=== PATIENT | male | born 1990 | race Caucasian/White ===

== ENCOUNTER 2016-07-30 10:14 | Emergency (ER) | payer SELFPAY ==
[~2016-07-30] VITALS: Ht 170.2 cm; Wt 107.0 kg
[2016-07-30 10:17] VITALS: BP 129/66
[2016-07-30] MEDS ORDERED: MORPHINE 2 MG/ML 1ML SYRINGE IV ONE (10:30)
[2016-07-30] MEDS ORDERED: ONDANSETRON 4 MG ORAL DISINTEGRATING TAB (S0181) SL ONE (10:45)
[2016-07-30 11:21] LABS: BASO # 0.1 K/mm3 (0.0-0.2); BASO % 0.9 % (0.0-1.0); EOS # 0.3 K/mm3 (0.0-0.50); LARGE UNSTAINED CELL # 0.2 K/mm3 (0.0-0.4); LARGE UNSTAINED CELL % 1.6 % (0.0-4.0); LYMPH % 19.1 % (24.0-44.0); MEAN CORPUSCULAR HEMOGLOBIN 30.9 pg (27.0-33.0); MEAN CORPUSCULAR HGB CONC 34.3 g/dl (32.0-36.5); MEAN CORPUSCULAR VOLUME 90.1 fl (80.0-96.0); MONO # 0.6 K/mm3 (0.0-0.8); NEUTROPHILS # 6.9 K/mm3 (1.8-7.7); NEUTROPHILS % 69.4 % (36.0-66.0); PLATELET COUNT, AUTOMATED 247 k/mm3 (150-450); RED CELL DISTRIBUTION WIDTH 12.9 % (11.5-14.5); WHITE BLOOD COUNT 9.9 K/mm3 (4.0-10.0)
[2016-07-30] MEDS ORDERED: NS 1,000 ML IV ONE ×2 (11:30→13:30)
[2016-07-30] MEDS ORDERED: MORPHINE 4 MG/ML 1ML SYRINGE IV ONE (11:30)
[2016-07-30 11:31] LABS: ANION GAP 4 MEQ/L (8-16); BLOOD UREA NITROGEN 13 MG/DL (7-18); CALCIUM LEVEL 8.6 MG/DL (8.5-10.1); CARBON DIOXIDE LEVEL 29 MEQ/L (21-32); CHLORIDE LEVEL 107 MEQ/L (98-107); CREATININE FOR GFR 1.17 MG/DL (0.70-1.30); GLOMERULAR FILTRATION RATE > 60.0 (>60); GLUCOSE, FASTING 106 MG/DL (70-105); POTASSIUM SERUM 3.9 MEQ/L (3.5-5.1); SODIUM LEVEL 140 MEQ/L (136-145)
[2016-07-30] MEDS ORDERED: PROMETHAZINE INJ 25 MG/ML VIAL (J2550) IV ONE (11:45)
--- NOTE | 2016-07-30 12:22 | REP ---
SCROTAL ULTRASOUND: HISTORY: Left-sided pain. COMPARISON: None. The right testicle measures 4.8 x 2.8 x 3.2 cm and the left measures 4.9 x 2.5 x 3.5 cm. The right testicular RI is 0.48 and the left is 0.61. There are no testicular masses. There is a tiny left hydrocele and a tiny right hydrocele. Doppler shows a normal vascular pattern bilaterally. IMPRESSION: Unremarkable exam. The technologist has made note on the worksheet that the exam is somewhat limited due to patient motion. Signed by David Cortes DO 07/30/2016 01:32 P
[2016-07-30] MEDS ORDERED: GASTROGRAFIN SOLUTION 30ML (Q9963) PO ONE ×2 (12:30→13:00)
[2016-07-30] MEDS ORDERED: ISOVUE-370 76% 100ML VIAL (Q9967) As Ordered ONE (13:53)
[2016-07-30 13:56] LABS: CALCIUM OXALATE CRYSTALS SMALL; YEAST LIKE CELL URINE AUTO SMALL
[2016-07-30] MEDS ORDERED: TAMSULOSIN 0.4 MG CAP PO ONE (14:00)
--- NOTE | 2016-07-30 14:02 | REP ---
PELVIC ULTRASOUND: HISTORY: Right inguinal pain. COMPARISON: None. Multiple ultrasonographic images labeled right inguinal canal show no abnormalities. Negative ultrasound examination does not rule out an inguinal hernia. Signed by David Cortes DO 07/30/2016 02:47 P
[2016-07-30] MEDS ORDERED: FLOM5CAP PO (14:08)
[2016-07-30] MEDS ORDERED: PERC5TAB6 PO (14:08)
== END 2016-07-30 14:51 | disposition home or self-care (01) ==
LOC: M ED 10:57
DX: N23 Unspecified renal colic (principal); Z79.899 Other long term (current) drug therapy; F17.210 Nicotine dependence, cigarettes, uncomplicated
CPT/HCPCS: 76857; 76870; 80048; 81001; 85025; 87491; 87591; 93976; 96374; 96375; 96376; 99282; Q9963

== ENCOUNTER 2020-01-08 09:09 | Emergency (ER) | payer BC, SELFPAY ==
[~2020-01-08] VITALS: Ht 175.3 cm; Wt 106.8 kg
[~2020-01-08 09:09] MED LIST: FLOM0.4C39 PO; PERC5TAB12 PO
--- NOTE | 2020-01-08 10:24 | REPVR ---
PROCEDURE INFORMATION: Exam: CT Abdomen And Pelvis Without Contrast Exam date and time: 01/08/2020 9:48 AM Age: 29 years old Clinical indication: Abdominal pain; Generalized; Additional info: Urinary symptoms/h/o stones ? stone TECHNIQUE: Imaging protocol: Computed tomography of the abdomen and pelvis without contrast. Radiation optimization: All CT scans at this facility use at least one of these dose optimization techniques: automated exposure control; mA and/or kV adjustment per patient size (includes targeted exams where dose is matched to clinical indication); or iterative reconstruction. COMPARISON: Pelvis, limited US 07/30/2016 12:47 PM FINDINGS: Liver: The liver is mildly fatty but not enlarged. Gallbladder and bile ducts: Normal. No calcified stones. No ductal dilation. Pancreas: Normal. No ductal dilation. Spleen: Numerous splenic granulomata is seen. The spleen has numerous granulomas. Adrenals: Normal. No mass. Kidneys and ureters: There is a 1 mm nonobstructing left renal stone. There is no right nephrolithiasis. There is no hydronephrosis. Stomach and bowel: There is mild acute sigmoid colon diverticulitis. Appendix: The appendix is seen appears normal. Intraperitoneal space: Trace amount of pelvic fluid.. No free air. No significant fluid collection. Vasculature: Unremarkable. No abdominal aortic aneurysm. Lymph nodes: Unremarkable. No enlarged lymph nodes. Urinary bladder: Unremarkable as visualized. Reproductive: Unremarkable as visualized. Bones/joints: Unremarkable. No acute fracture. Soft tissues: Unremarkable. IMPRESSION: 1. Acute non perforated sigmoid diverticulitis. 2. Nonobstructing small left renal stone. Electronically signed by: Patrick Pollock On 01/08/2020 10:24:22 AM
[2020-01-08] MEDS ORDERED: CIPR-249 PO (10:34)
[2020-01-08] MEDS ORDERED: FLAG500T PO (10:35)
[2020-01-08 10:43] VITALS: BP 110/68
[2020-01-08] MEDS ORDERED: KETOROLAC TROMETHAMINE 10 MG TAB PO ONE (10:45)
== END 2020-01-08 10:51 | disposition home or self-care (01) ==
LOC: M ED 09:09
DX: K57.32 Diverticulitis of large intestine without perforation or abscess without bleeding (principal); N20.0 Calculus of kidney; Z87.442 Personal history of urinary calculi

== ENCOUNTER 2022-08-24 12:22 | Emergency (ER) | payer BC, OTHER ==
[~2022-08-24] VITALS: Ht 170.2 cm; Wt 108.1 kg
[~2022-08-24 12:22] MED LIST changes: +CIPR-249 PO; +FLAG500T PO
[2022-08-24] MEDS ORDERED: ACETAMINOPHEN TAB 650MG DOSE (2X325MG) PO ONE (14:05)
[2022-08-24] MEDS ORDERED: KETOROLAC 60MG 2ML VIAL IM ONE (14:05)
[2022-08-24] MEDS ORDERED: NAPR-837 PO (15:09)
[2022-08-24] MEDS ORDERED: CYCL-707 PO (15:09)
[2022-08-24 15:18] VITALS: BP 126/71
== END 2022-08-24 15:25 | disposition home or self-care (01) ==
LOC: M ED 12:22
DX: S29.012A Strain of muscle and tendon of back wall of thorax, initial encounter (principal); M62.830 Muscle spasm of back; X50.0XXA Overexertion from strenuous movement or load, initial encounter; Z87.442 Personal history of urinary calculi; F17.200 Nicotine dependence, unspecified, uncomplicated
CPT/HCPCS: 71046; 93005; 96372; 99284; J1885